=== PATIENT | male | born 1990 | race Two or more races ===

== ENCOUNTER 2017-02-09 00:45 | Emergency (ER) | payer SELFPAY ==
[~2017-02-09] VITALS: Ht 185.4 cm; Wt 102.1 kg
[2017-02-09] MEDS ORDERED: HYDR-3326 PO (00:58)
--- NOTE | 2017-02-09 01:52 | NUR ---
Patient discharged to home in stable conditon. Written and verbal after care instructions given. Patient verbalizes understanding of instructions. Wrist velcro splint applied, CMS WNL. No issues noted, no signs of pain noted. Ambulated from ER with stable gait. All belongings with patient.
[2017-02-09 01:53] VITALS: BP 130/78
== END 2017-02-09 01:54 | disposition home or self-care (01) ==
LOC: ER 00:53
DX: S62.91XA Unspecified fracture of right hand, initial encounter for closed fracture (principal); F17.200 Nicotine dependence, unspecified, uncomplicated; Z88.0 Allergy status to penicillin; W22.8XXA Striking against or struck by other objects, initial encounter; Y93.89 Activity, other specified; Y99.8 Other external cause status; Y92.89 Other specified places as the place of occurrence of the external cause
CPT/HCPCS: 73130; A4663